=== PATIENT | male | born 1975 | race Caucasian/White ===

== ENCOUNTER 2017-01-18 23:45 | Emergency (ER) | payer BC ==
--- NOTE | 2017-01-20 00:49 | ER ---
ADMIT: 01/18/2017 RM/LOC: ER [facility] MR#: [id number] [place], [place] [id number] [address] [place] [address] Emergency Room Report SEX: M AGE: 41 : 1975 DATE: 01/18/2017 HISTORY OF PRESENT ILLNESS: The patient is a 41-year-old male with past medical history of multiple kidney stones, came to the ER with chief complaint of left flank pain for 30 minutes. Pain from left posterior radiates to the left anterior, it is moderate to severe and sharp, and the patient had it for 30 minutes. Nothing makes the pain better or worse, and he had similar symptoms in the past. The patient denies any urinary symptoms. No hematuria or urgency or frequency today, but states that previously he had hematuria. PHYSICAL EXAMINATION: GENERAL: The patient is afebrile in the ER, in moderate distress. HEAD AND NECK: Normal. CHEST: Clear. HEART: Normal heart sounds. ABDOMEN: Soft and nontender, and there is no CVA tenderness. The rest of the physical exam is noncontributory and negative. Urine had white red blood cells and 1 white blood cell. Creatinine level was 1.1. CT renal colic protocol was positive for bilateral nonobstructive kidney stones, pain was effectively controlled. The patient had no signs of infection, the patient was discharged to home, return precautions, diagnosis of urolithiasis, renal colic, and advised to follow up with the primary doctor this week. Nithin Jacobs MD/ qamar JOB #: [id number] CC: Nithin Jacobs MD, Attending Physician Jeffrey Barajas MD, Family Physician
== END 2017-01-19 03:15 | disposition home or self-care (01) ==
LOC: ER 23:45
DX: N20.9 Urinary calculus, unspecified (principal); Z98.890 Other specified postprocedural states